=== PATIENT | male | born 1965 | race Caucasian/White ===

== ENCOUNTER 2024-09-08 00:57 | Emergency (ER) | payer OTHER, SELFPAY ==
--- OUTSIDE RECORDS SUMMARY | 2024-09-08 01:00 | XMS_ITS | Clinical Summary ---
Author Organization [facility] Address [address] [place] [address] Care Team Providers Care Supervisor Paint Roller Covers Name Role Phone Daphnie Love DO Primary Care Provider [phone]- [phone] Allergies Active Allergy Reactions Criticality Noted Date Comments Shellfish Containing Products Throat Swelling/Closing 04/15/2009 Medications cholecalciferol , vitamin D3, (VITAMIN D3 ORAL) Take by mouth. Active trimethoprim-paz lfamethoxazole 160-800 mg tabIndications: Urinary symptom or sign Take 1 Tablet by mouth two times daily for 5 days. 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 Skin cancer 03/25/2022 Overview (04/15/2022): 03/22/2022, LEFT SHOULDER, BCC, nodular type: s/p ED&C 04/05/2022 Routine adult health maintenance 08/13/2016 Overview (08/13/2016): Colonoscopy 07/2016 long colon repeat in 10 years, PEG 8L Family history of brain aneurysm 02/17/2016 Family history of prostate cancer 02/17/2016 Anxiety 03/25/2014 Depression 03/25/2014 Encounters Date Type Department Care Team Description 09/07/2024 3:00 PM CDT Orders Only [facility] [address] [facility] [address] [place] Lab 09/07/2024 12:30 PM CDT Telemedicine [facility] [address] [facility] [address] [address] Gino Wells MD Concerns (pt states this has been discussed with his PCP years ago. Has had his PSA check and last time was fine. Pt states he has had the urgency to get up and go to the bathroom and nothing barely comes out This has really gotten worse in the last two weeks.) 09/07/2024 Telephone [facility] [address] [address] [place] [address] Gino Wells MD UTI 09/07/2024 Travel 08/20/2024 Nurse Triage [facility] [address] [place] [address] Daphnie Love DO Head Injury 07/26/2024 12:45 PM CDT Office Visit [facility] [address] [facility] [address] [place] [address] Annie Mckeon MD Derm Problem 07/26/2024 Travel 07/21/2024 Travel 07/19/2024 Orders Only [facility] Scanner 1 scan: (1-Ord) [facility] from Last 3 Months Immunizations Immunization Administration Dates Next Due AMB Influenza, (Flumist) Aletha e Intranasal,LAIV4 (Flu Clinic Only) 02/28/2013,04/02/2008 COVID-19 VACCINE SPIKEVAX (M ODERNA 50MCG/0.5ML) 12YO+ PFS 03/12/2024 INFLUENZA, IIV3 PF (AGE >= 6 MO) 03/12/2024 Influenza, IIV4 04/06/2021,04/03/2019 Influenza,CCIIV4 PRESERV FREE 02/22/2023, 022 Td, Preservative Free (age >= 7 Years) Tdap 02/25/2012 Zoster (Shingrix-RZV, recombinant) 07/16/2019, Family History Medical History Relation Name Comments Cancer-prostate Father Parkinsonism Maternal Grandmother Good Health Mother Relation Name Status Comments Father Maternal Grandmother Mother Social History Tobacco Use Types Packs/Day Years Used Date Smoking Tobacco: Never Smokeless Tobacco: Never Tobacco Cessation:Counseling Given: Yes Alcohol Use Standard Drinks/Week Comments Yes 1 (1 standard drink = 0.6 oz pur e alcohol) 1-2 every now and then PHQ-2 Answer Date Recorded PHQ-2 TOTAL SCORE 0 03/12/2024 Social Connections Answer Date Recorded Do you often feel lonely or isolated from those around you? 0 03/07/2024 Alcohol Use Answer Date Recorded How often do you have a drink containing alcohol ? 2 05/20/2021 How many drinks containing a lcohol do you have on a typical day when you are drinking? 0 05/20/2021 How often do you have five or more drinks on one occasion? 0 05/20/2021 Financial Resource Strain Answer Date R ecorded Difficulty of Paying Living Expenses 3 03/12/2024 Difficulty of Paying Living Expenses Not on file 03/12/2024 Food Insecurity Answer Date Recorded Do you worry your food will run out before you are able to buy more? 1 03/07/2024 Transportation Needs Answer Date Record ed Does lack of transportation keep you from medica l appointments? 1 03/07/2024 Does lack of transportation keep you from work, meetings or getting things that you need? 1 03/07/2024 Housing Stability Answer Date Recorded What is your housing situation today? 1 03/07/2024 Utilities Answer Date Recorded Do you have trouble paying f or utilities (for example, heat, electricity, water, phone)? 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 Gender Identity Not on file Sexual Orientation Not on file Obstetrics History Last Filed Vital Signs Vital Sign Reading Time Taken Comments Blood Pressure 102/67 03/12/2024 3:09 PM CDT Pulse 63 03/12/2024 3:09 PM CDT Temperature 36.7 C (98 F) 02/22/2013 9:20 AM CDT Respiratory Rate - - Oxygen Saturation 97% 03/12/2024 3:09 PM CDT Inhaled Oxygen Concentration - - Weight 86.4 kg (190 lb 8 oz) 03/12/2024 3:09 PM CDT Height 183.5 cm (6' 0.24) 03/12/2024 3:09 PM CD T Body Mass Index 25.66 03/12/2024 3:09 PM CDT Plan of Treatment Upcoming Encounters Date Type Department Care Team (Late st Contact Info) Description 10/01/2024 9:10 AM CDT Office Visit [facility] [address] [place] [address] Daphnie Love DO [address] [place] [address] 01/23/2025 10:00 AM CDT Office Visit [facility] [address] [id number] [place] [address] [place] [address] Health Maintenance Due Date Last Done Comments Pneumococcal series for age 50+ (1 of 1 - PCV) 2014 BMI (ht and wt on same day) for age 18+ 03/12/2025 03/12/2024, 11/27/2021, 01/30/2019, Additional history exists Depression screening for age 12+ 03/12/2025 03/12/2024, 11/27/2021, 04/25/2019, Additional history exists Colonoscopy through age 75 08/13/202608/13, 08/13/2016, 08/13/2016 Lipids for age 45-75 03/12/2029 03/12/2024, 11/28/19 22 Tetanus booster 03/12/2034 03/12/2024, 02/25/2012 RSV vaccine for adults or (1 - 1-dose 75+ series) 08/04/2039 Tdap Completed 02/25/2012 Zoster (shingles) series for age 50+ Completed 07/16/2019, 04/03/2019 Hepatitis C screening for ag e 18-79 Completed 11/27/2021 COVID-19 vaccine series Completed 03/12/20 24, 02/22/2023, 02/23/2022, Additional history exists HIV for age 15-65 Completed 03/12/2024 Influenza Vaccine Completed 03/12/2024, , 02/23/2022, Additional history exists Procedures Procedure Name Priority Date/Time Associated Diagnosis Comments SCAN-EYE EXAM 07/19/2024 12:00 AM KEYLINER HIV 1/2 ANTIGEN/ANTIBODY FOURTH GENERATION W/RFL (QUEST) Routine 03/12/2024 4:02 PM CDT Encounter for screening for HIV LIPID PANEL W REFLEX MEASURED LDL Routine 03/12/2024 4:02 PM CDT Lipid screening ANTI HCV Routine 11/27/2021 1:19 PM CDT Need for hepatitis C screening test COLONOSCOPY 08/13/2016 8:27 AM CDT from Last 3 Months or Most Recently Relevant to Health Maintenance Results * SCAN-EYE EXAM (07/19/2024 12:00 AM KEYLINER) us Scanner OTHER Final Result * HIV 1/2 ANTIGEN/ANTIBODY FOURTH GENERATION W/RFL (QUEST) (03/12/2024 4:02 PM CDT) HIV AG/AB, 4TH GEN NON-REACT GRAHAM NON-REACT RGAHAM [facility] Comment: HIV-1 antigen and HIV-1/HIV-2 antibodies were not detected. There is no laboratory evidence of HIV infection. PLEASE NOTE: This information has been disclosed to you from records whose confidentiality may be protected by state law. If your state requires such protection, then the state law prohibits you from making any further disclosure of the information without the specific written consent of the person to whom it pertains, or as otherwise permitted by law. A general authorization for the release of medical or other information is NOT sufficient for this purpose. For additional information please refer to http://education.Sparkbrowser.Traffix Systems/faq/LLD967 (This link is being provided for informational/ educational purposes only.) The performance of this assay has not been clinically validated in patients less than 2 years old. Blood BLOOD SPECIMEN / Unknown 03/12/2024 4:02 PM CDT 03/12/2024 4:03 PM CDT Narrative [facility] - 03/13/2024 11:02 PM CDT FASTING:UNKNOWN FASTING: UNKNOWN us Daphnie Love DO SEND OUTS Final Resu lt [facility] [address] [place] [address], [facility] [address] [place] [address] * (ABNORMAL) LIPID PANEL W REFLEX MEASURED LDL (03/12/2024 4:02 PM CDT) [facility] CHOLESTEROL, TOTAL 236(H) <200 mg/dL [facility] HDL CHOLESTEROL 61 > OR = 40 mg/dL [facility] TRIGLYCERIDES 150(H) <150 mg/dL [facility] LDL-CHOLESTEROL 147(H) mg/dL (calc) [facility] Comment: Reference range: <100 Desirable range <100 mg/dL for primary prevention; <70 mg/dL for patients with CHD or diabetic patients with > or = 2 CHD risk factors. LDL-C is now calculated using the Lili calculation, which is a validated novel method providing better accuracy than the Friedewald equation in the estimation of LDL-C. Markie MERCADO et al. MALCOM. 2013;310(19): 3283-5195 (http://education.OMGPOP.Traffix Systems/faq/SKT677) CHOL/HDLC RATIO 3.9 <5.0 (calc) [facility] NON HDL CHOLESTEROL 175(H) <130 mg/dL (calc) [facility] Comment: For patients with diabetes plus 1 major ASCVD risk factor, treating to a non-HDL-C goal of <100 mg/dL (LDL-C of <70 mg/dL) is considered a therapeutic option. Blood BLOOD SPECIMEN / Unknown 03/12/2024 4:02 PM CDT 03/12/2024 4:03 PM CDT Narrative [facility] - 03/13/2024 3:33 AM CDT FASTING:UNKNOWN FASTING: UNKNOWN Daphnie Love DO CHEMISTRY Final Resu lt Performing Organization Address City/[facility] Co de Phone Number [facility] [address] [place] [address], [place] [phone] [facility] [address] [place] [address] * ANTI HCV (11/27/2021 1:19 PM CDT) Pathologist [facility] HEPATITIS C ANTIBODY Non-React graham Non-React graham 11/28/2021 12:19 AM CDT [facility] Comment:Antibodies to HCV no t detected; does not exclude the possibility of exposure to HCV. Blood BLOOD SPECIMEN / Unknown Venipuncture / Unknown 11/27/2021 1:19 PM CDT 11/27/2021 1:19 PM CDT Christy Sears DO SEND OUTS Final Result Performing Organization Address [facility] Co de Phone Number [facility] [address] [place] [address], [place] * COLONOSCOPY (08/13/2016 8:27 AM CDT) 08/13/2016 8:27 AM CDT Narrative Transcriptions Markie Vasquez MD - 08/13/2016 1:25 PM CDT Patient Name: Zaid Vela Procedure Date: 08/13/2016 Gender: Male Date of : 1965 Admit Type: Outpatient Procedure: Colonoscopy Proceduralist: Markie Vasquez MD , Eliza Gomez (Nurse) Indications/Pre-Op Diagnosis: Screening for colorectal malignant neoplasm, This is the patient's first colonoscopy Medications: Fentanyl 200 micrograms IV, Midazolam 6 mgIV, For a split procedure. The level of sedation administered was moderate Procedure Description: The patient had risks, benefits and alternatives explained to andgave informed consent. The patient had a stable cardiopulmonary status and judged an adequate candidate for conscious sedation. The PCF-Q290AL [id number] was passed through the anus and advanced tothe cecum, identified by appendiceal orifice and ileocecal valve. The PCF-Q290AL [id number] was passed through the and advanced to. The colonoscopy was performed without difficulty. The patient toleratedthe procedure well. The quality of the bowel preparation was good. The ileocecal valve, appendiceal orifice, and rectum were photographed. Complications: No immediate complications. Estimated Blood Loss & Specimen: Estimated blood loss: none. Specimen collected - None Findings: The entire examined colon appeared normal on direct and retroflexion views. Impressions/Post-Op Diagnosis: - The entire examined colon is normal on direct and retroflexionviews. - No specimens collected. Recommendation: - Patient has a contact number available for emergencies. The signsand symptoms of potential delayed complications were discussed with the patient. Return to normal activities tomorrow. Written discharge instructions were provided to the patient. - Resume previous diet. - Continue present medications. - Repeat colonoscopy in 10 years for screening purposes. - For future colonoscopy the patient will require an extended preparation- PEG 8 L. If there are any questions, please contact the drain tile machine operator. Moderate Sedation: Moderate (conscious) sedation was administered by the endoscopy nurse and supervised by the endoscopist. The following parameters were monitored: oxygen saturation, heart rate, respiratory rate, blood pressure, adequacy of pulmonary ventilation and reponse to care. [facility] flow[facility] and nursing notes for moderate sedation details. Total physician intraservice time was 34 minutes. Markie Vasquez MD 08/13/2016 1:25:24 PM This report has been signed electronically. Note Initiated On: 08/13/2016 8:27 AM Procedure Code(s): --- Professional --- 31157, Colonoscopy, flexible; diagnostic, including collection of specimen(s) bybrushing or washing, when performed (separateprocedure) Diagnosis Code(s): --- Professional --- Z12.11, Encounter for screening formalignant neoplasm of colon CPT copyright 2016 [employer]. All rights reserved. The codes documented in this report are preliminary and upon medical records coder reviewmay be revised to meet current compliance requirements. Scope In: 12:44:10 PM Scope Withdrawal Time 0 hours 13 minutes 30 seconds Scope Out: 1:13:52 PM us Markie Vasquez MD PROCEDURE ORD Final Res ult from Last 3 Months or Most Recently Relevant to Health Maintenance Insurance [facility] * Guarantor: [facility] [employer] [facility] Account Type Relation to Patient Date of Phone Billing Address [facility] [employer] [address] [place] [address] Care Teams Supervisor Paint Roller Covers Relationship Specialty Start Date End Date Daphnie Love DO [address] [place] [address] PCP - General Family Practice 03/25/14
[2024-09-08 01:01] VITALS: BP 159/85; PULSE 97; RESP 18; TEMP 36.1; O2SAT 100; BMI 26.4
--- OUTSIDE RECORDS SUMMARY | 2024-09-08 02:03 | XMS_ITS | Clinical Summary ---
Author Organization [facility] Address [address] [place] [address] Care Team Providers Care Assistant Warehouse Manager Name Role Phone Daphnie Love DO Primary Care Provider +1- [phone] Allergies Active Allergy Reactions Criticality Noted Date [...] Description 09/07/2024 3:00 PM CDT Orders Only [facility] [address] [facility] [address] [place], [place] Lab 09/07/2024 12:30 PM CDT Telemedicine [facility] [address] [facility] [address] [address] Gino Wells MD Concerns (pt states this has been discussed with his PCP years ago. Has had his PSA check and last time was fine. Pt states he has had the urgency to get up and go to the bathroom and nothing barely comes out This has really gotten worse in the last two weeks.) 09/07/2024 Telephone [facility] [address] [address] [place] [address] Gino Wells MD UTI 09/07/2024 Travel 08/20/2024 Nurse Triage [facility] [address] [place] [address] Daphnie Love DO Head Injury 07/26/2024 12:45 PM CDT Office Visit [facility] [address] [facility] [address] [place] [address] Annie Mckeon MD Derm Problem 07/26/2024 Travel 07/21/2024 Travel 07/19/2024 Orders Only [facility] Scanner 1 scan: [...] on file Legal 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 Gender Identity Not on file Sexual Orientation [...] Description 10/01/2024 9:10 AM CDT Office Visit [facility] [address] [place] [address] Daphnie Love DO [address] [place] [address] 01/23/2025 10:00 AM CDT Office Visit [facility] [address] [id number] [place] [address] [place] [address] Health Maintenance Due Date Last Done Comments [...] Diagnosis Comments SCAN-EYE EXAM 07/19/2024 12:00 AM ENGINEERING GROUP LEADER HIV 1/2 ANTIGEN/ANTIBODY FOURTH GENERATION W/RFL (QUEST) [...] Results * SCAN-EYE EXAM (07/19/2024 12:00 AM ENGINEERING GROUP LEADER) us Scanner OTHER Final Result * HIV 1/2 ANTIGEN/ANTIBODY FOURTH GENERATION W/RFL (QUEST) (03/12/2024 4:02 PM CDT) HIV AG/AB, 4TH GEN NON-REACT GRAHAM NON-REACT GRAHAM [facility] Comment: HIV-1 antigen and HIV-1/HIV-2 antibodies were [...] purpose. For additional information please refer to http://education.The Hotel Barter Network.CaterCow/faq/NNP921 (This link is being provided for informational/ educational purposes only.) The performance of this assay has not been clinically validated in patients less than 2 years old. Blood BLOOD SPECIMEN / Unknown 03/12/2024 4:02 PM CDT 03/12/2024 4:03 PM CDT Narrative [facility] - 03/13/2024 11:02 PM CDT FASTING:UNKNOWN FASTING: UNKNOWN us Daphnie Love DO SEND OUTS Final Resu lt [facility] [address] [place] [address], [facility] [place] [address] [place] [address] * (ABNORMAL) LIPID PANEL W REFLEX MEASURED LDL (03/12/2024 4:02 PM CDT) [facility] CHOLESTEROL, TOTAL 236(H) <200 mg/dL [facility] HDL CHOLESTEROL 61 > OR = 40 mg/dL [facility] TRIGLYCERIDES 150(H) <150 mg/dL [facility] LDL-CHOLESTEROL 147(H) mg/dL (calc) [facility] Comment: Reference range: <100 Desirable range <100 mg/dL for primary prevention; <70 mg/dL for patients with CHD or diabetic patients with > or = 2 CHD risk factors. LDL-C is now calculated using the Lili calculation, which is a validated novel method providing better accuracy than the Friedewald equation in the estimation of LDL-C. Markie MERCADO et al. MALCOM. 2013;310(19): 1853-7475 (http://education.ApeniMED.CaterCow/faq/JNS234) CHOL/HDLC RATIO 3.9 <5.0 (calc) [facility] NON HDL CHOLESTEROL 175(H) <130 mg/dL (calc) [facility] Comment: For patients with diabetes [...] CHEMISTRY Final Resu lt Performing Organization Address City/[facility] Co de Phone Number [facility] [address] [place] [address], [place] [phone] [facility] [address] [place] [address] * ANTI HCV (11/27/2021 1:19 PM CDT) Pathologist [facility] HEPATITIS C ANTIBODY Non-React graham Non-React graham 11/28/2021 12:19 AM CDT [facility] Comment:Antibodies to HCV no t detected; does not exclude the possibility of exposure to HCV. Blood BLOOD SPECIMEN / Unknown Venipuncture / Unknown 11/27/2021 1:19 PM CDT 11/27/2021 1:19 PM CDT Christy Sears DO SEND OUTS Final Result Performing Organization Address [facility] Co de Phone Number [facility] [address] [place] [address], [place] * COLONOSCOPY (08/13/2016 8:27 AM CDT) [...] adequate candidate for conscious sedation. The PCF-Q290AL [id number] was passed through the anus and advanced tothe cecum, identified by appendiceal orifice and ileocecal valve. The PCF-Q290AL [id number] was passed through the and advanced to. [...] there are any questions, please contact the account adjuster. Moderate Sedation: Moderate (conscious) sedation was administered by the endoscopy nurse and supervised by the endoscopist. The following parameters were monitored: oxygen saturation, heart rate, respiratory rate, blood pressure, adequacy of pulmonary ventilation and reponse to care. [facility] flowsheets and nursing notes for moderate sedation details. Total physician intraservice time was 34 minutes. Markie Vasquez MD 08/13/2016 1:25:24 PM This report has been signed electronically. Note Initiated On: 08/13/2016 8:27 AM Procedure Code(s): --- Professional --- 07259, Colonoscopy, flexible; diagnostic, including collection of specimen(s) bybrushing or washing, when performed (separateprocedure) Diagnosis Code(s): --- Professional --- Z12.11, Encounter for screening formalignant neoplasm of colon CPT copyright 2016 [employer]. All rights reserved. The codes documented in this report are preliminary and upon parent aide reviewmay be revised to meet current compliance requirements. Scope In: 12:44:10 PM Scope Withdrawal Time 0 hours 13 minutes 30 seconds Scope Out: 1:13:52 PM us Markie Vasquez MD PROCEDURE ORD Final Res ult from Last 3 Months or Most Recently Relevant to Health Maintenance Insurance [facility] * Guarantor: [facility] [employer] [facility] Account Type Relation to Patient Date of Phone Billing Address [facility] [employer] [address] [place] [address] Care Teams Assistant Warehouse Manager Relationship Specialty Start Date End Date Daphnie Love DO [address] [place] [address] PCP - General Family Practice 03/25/14
[2024-09-08] MEDS: TAMSULOSIN HCL 0.4 MG CAPSULE PO (02:15)
--- NOTE | 2024-09-08 02:16 | ED_ITS ---
HPI - General Adult General Chief complaint: Urogenital Problems, Male Stated complaint: Urinary pain Time Seen by Provider: 09/08/24 01:05 Source: patient Mode of arrival: ambulatory Limitations: no limitations History of Present Illness HPI narrative: 59-year-old male presents uncomfortable with inability to urinate, feeling like his lower abdomen is getting distended, uncomfortable. This is been worsening over the last couple of days, when he tries to urinate, only a few dribbles come out but feels like he still has much urine in. No hematuria, no injury or trauma. No prior history of similar retention but has been told that he has BPH. He has seen urology in the past and it sounds like he was recommended to start taking Flomax but elected not to fearing that he would have side effects to the medication. Does not use any anticoagulants or take other long-term medications. No fever. He attempted to urinate in triage, was able to only get a few dribbles out. Bladder scan showing over 450. Cortez catheter was placed by nurse after brief discussion with me and this has heal that about 650 mL of clear yellow urine at the time of my interview, and patient is feeling much better. No prior catheter. No prior surgical urological history. States that his past medical history is benign, leads an active lifestyle. Nonsmoker. ROS notable for the urinary changes only, otherwise denies acute c hanges times 12 systems. Related Data Previous Rx's ?Medication ?Instructions ?Recorded tamsulosin 0.4 mg capsule 0.4 mg PO QHS #30 caps 09/08/24 Allergies Allergy/AdvReac Type Severity Reaction Status Date / Time No Known Drug Allergies Allergy Verified 08/22/24 14:11 Exam Const: Vital Signs, click to edit/add: Vital Signs - 24 hr 09/08/24 01:01 Temperature 97.0 F L Pulse Rate [Left P ulse Oximeter] 97 Respiratory Rate 18 Blood Pressure [Ri ght Upper Arm] 159/85 H Pulse Oximetry 100 Oxygen Delivery Me thod Room Air Documenting provider has reviewed patient's vital signs: yes General appearance: cooperative and well kempt Other: Initial mild discomfort, now relieved. Good historian. HENMT: Common normals: normocephalic Head and scalp: normocephalic Face and sinus: normal facial exam Eye: General eye: normal appearance of both eyes Neck & C-Spine: General: normal visual inspection Resp: Common normals: normal respiratory effort Effort & inspection: able to speak in complete sentences GI: Common normals: Normal to inspection, nondistended, normoactive bowel sounds present, soft to palpation, non-tender, no hepatosplenomegaly and no masses Palpation: soft and no hepatosplenomegaly Psych: Common normals: speech normal Appearance: well kempt Attitude: engaged Activity/motor behavior: appropriate eye contact Speech: normal speech Skin: Common normals: no rashes or lesions noted General skin exam: no rashes or lesions noted Course Course ED Course: 5-year-old male with acute urinary retention, relieved with placement of Cortez catheter. Draining clear urine, noted history of BPH. Counseled patient on management, unfortunately this is a common condition. Will transition into a leg bag, college and career counselor on management care. Start patient on Flomax to help reduce spasm, he will need to call for urology follow-up. Number provided. Okay to use Tylenol and ibuprofen. Encouraged to use Vaseline on the tip of the penis at least a few times a day to help reduce infection and easy irritation. Alarm symptoms reviewed like fever, blood, nondraining catheter all as indications to come in to the ED again. He verbalizes understanding and agreement. Vital Signs Vital signs: Initial Vital Signs Temperature 97.0 F L 09/08/24 01:01 Temperature Source Temporal Artery Scan 09/08/24 01:01 Pulse Rate 97 09/08/24 01:01 Respiratory Rate 18 09/08/24 01:01 Blood Pressure 159/85 H 09/08/24 01:01 Blood Pressure Mean 109 H 09/08/24 01:01 Blood Pressure Position Standing 09/08/24 01:01 Pulse Oximetry 100 09/08/24 01:01 Oxygen Delivery Method Room Air 09/08/24 01:01 Vital Signs Temperature 97.0 F L 09/08/24 01:01 Pulse Rate 97 09/08/24 01:01 Respiratory Rate 18 09/08/24 01:01 Blood Pressure 159/85 H 09/08/24 01:01 Pulse Oximetry 100 09/08/24 01:01 Oxygen Delivery Method Room Air 09/08/24 01:01 Temperature 97.0 F L 09/08/24 01:01 Pulse Rate 97 09/08/24 01:01 Respiratory Rate 18 09/08/24 01:01 Blood Pressure 159/85 H 09/08/24 01:01 Pulse Oximetry 100 09/08/24 01:01 Oxygen Delivery Method Room Air 09/08/24 01:01 Discharge Plan Discharge Clinical Impression: Acute urinary retention Instructions: Urinary Retention in Men (ED) Additional Instructions: As we discussed, acute urinary retention is a common problem in min. We see it almost every night. Gradual prostate enlargement prevents the bladder from draining fully and then you had a critical point where the muscles in the bladder cannot fully relax an empty the bladder and the obstruction worsens just enough to where you cannot urinate. Even though the problem comes on gradually it tends to come to a head suddenly. With a catheter in place, you are now safe. The bladder can not drain. This is a temporary fix. You will need to call [facility] Tuesday to get an appointment. He will keep the catheter in place in the meantime. Their phone number is [phone]. If you have seen a urologist previously, you are welcome to try that office instead. Make sure that your emptying the catheter bag if becomes half to 2/3 full, especially before going to bed. I started on a medication called Flomax, also known as tamsulosin. This will help cut down on the spasm associated with having the catheter in place and may be an option for you for treatment long- term though at this point on ureter knee, it may not be enough alone. Your urologist will recommend definitive treatment for you. Please apply Vaseline to the tip of the penis, at the catheter site 3 times daily to help reduce irritation and prevent infection. It is okay to use Tylenol and/or ibuprofen for mild discomfort as well. If you have high fevers, lots of blood clots, the catheter is not flowing, or other signs of an emergency, please return to the emergency department. Unfortunately, scant amounts of blood can be common in should not be considered worrisome. Continue drinking lots of fluids. Be careful with activity as anything that would cause sudden traction on the catheter may cause damage to the urinary system. Activity Level: Activity as Tolerated Discharge Diet: Regular Prescriptions: New tamsulosin 0.4 mg capsule 0.4 mg PO QHS Qty: 30 1RF Follow Up/Referrals: Provider,Not a Local [Primary Care Provider] -
== END 2024-09-08 02:46 | disposition home or self-care (01) ==
LOC: ED 02:01
PROVIDERS: Emergency Provider Family Medicine
DX: R33.9 Retention of urine, unspecified (principal)
CPT/HCPCS: 51702; 99283; A9270